=== PATIENT | female | born 1945 ===

== ENCOUNTER 2020-06-07 15:05 | Inpatient (IN) | payer MEDICARE ==
[2020-06-07] MEDS ORDERED: Acetaminophen 650 MG Suppository PR PRN (17:35)
[2020-06-07 17:43] VITALS: BMI 21.2
--- NOTE | 2020-06-07 19:05 | PDOC.HHP ---
Hospitalist HPI - History of Present Illness History of Present Illness: ADMISSION DATE: 06/07/2020 TIME OF ASSESSMENT: 1700 PRIMARY CARE PHYSICIAN: [place] of state CHIEF COMPLAINT: Right flank pain and chills HPI: This is a 74-year-old woman who transferred here from [facility] for continued management of pyelonephritis. She is visiting from [facility] and reports having gradually worsening right flank pain since 5 to 6 days ago. States the discomfort as an aching and rates it a 4 out of 10 in severity. She sought medical attention due to history of kidney infections in the past as well as UTIs. She was given 1 dose of Rocephin and then discharged with Keflex and received 4 doses of that without any significant improvement in her symptoms. She also developed chills which prompted her to seek medical attention today. She reports some difficulty with urination feels like she has been unable to fully empty her bladder. Denies any dysuria or hematuria. She denies any history of kidney stones. Patient had CT abdomen pelvis done which showed no hydronephrosis or urolithiasis. There was bilateral perinephric stranding felt to possibly be chronic in nature. Gallbladder distended measuring 6 cm in transverse dimension. No biliary ductal dilation. She had laboratory studies done which were notable for a white cell count of 15.3, hemoglobin 13.3, hematocrit 37.2, platelets 156. Renal function altered with a BUN of 43, creatinine 3.3, GFR 14. Sodium 133, potassium 4.5, phosphorus 4.6, magnesium 3, albumin 3.1, lactic acid 1.90. LFTs unremarkable. She was started on IV antibiotics with Rocephin and received 1g as well as 2 L of normal saline. Blood cultures were obtained. She was tested for Covid which came back negative. Urine culture was obtained on her initial visit from 06/05/2020 or notable for E. coli greater than 100,000. It was pansensitive except for ampicillin and ampicillin/sulbactam. ROS: Denies having any chest pain palpitations or shortness of breath. Denies having any nausea or vomiting. No headaches or dizziness. Has not had any bowel changes. No lower extremity swelling or edema. No recent cough or hemoptysis. Has not had any recent fevers. All other review systems are negative. PAST MEDICAL HISTORY: Right breast cancer Glaucoma History of CT 3 years ago PAST SURGICAL HISTORY: 1. Status post cardiac ablation x3 2. Coronary artery stent x1 3. Cardiac pacemaker due to persistent supraventricular tachycardia following the third ablation. 4. 5. Left shoulder surgery 6. Left knee surgery SOCIAL HISTORY: Patient is fully independent and lives with her . Reports smoking 2 cigarettes a day and drinks 2 glasses of martini a week. FAMILY HISTORY: Noncontributory ALLERGIES: 1. Beta-blockers caused asthma attack 2. Penicillin causes rash 3. Sulfa causes palpitations CURRENT MEDICATIONS: 1. Furosemide 2. Keflex 3. Magnesium oxide 4. Zioptan - Exam General Appearance: NAD, awake alert Eye: PERRL, anicteric sclera ENT: normocephalic atraumatic, no oropharyngeal lesions Neck: supple, no lymphadenopathy Heart: RRR, no murmur, normal peripheral pulses Respiratory: CTAB, no wheezes, normal chest expansion Gastrointestinal: soft, non-distended, tender to palpation (right CVA tenderness) Extremities: no edema Skin: normal turgor, no lesions, no rashes Neurological: cranial nerve grossly intact, normal sensation to touch, no weakness Musculoskeletal: normal tone, normal strength, no muscle wasting Psychiatric: normal affect, normal behavior, A&O x 3 Hospitalist H&P A/P - Problem (1) Pyelonephritis Code(s): N12 - TUBULO-INTERSTITIAL NEPHRITIS, NOT SPCF ACUTE OR CHRONIC Status: Acute (2) MARIAJOSE (acute kidney injury) Code(s): N17.9 - ACUTE KIDNEY FAILURE, UNSPECIFIED Status: Acute (3) Dehydration Code(s): E86.0 - DEHYDRATION Status: Acute (4) History of coronary artery disease Code(s): Z86.79 - PERSONAL HISTORY OF OTHER DISEASES OF THE CIRCULATORY SYSTEM Status: Chronic (5) History of permanent cardiac pacemaker placement Code(s): Z95.0 - PRESENCE OF CARDIAC PACEMAKER Status: Chronic (6) History of breast cancer Code(s): Z85.3 - PERSONAL HISTORY OF MALIGNANT NEOPLASM OF BREAST Status: Chronic - Plan Plan: Patient admitted for management of pyelonephritis and started on Rocephin prior to transfer. Cultures obtained at outside facility and grew E. Coli. She presented 2 days ago and received one dose of Rocephin, then discharged on Keflex. Returned today due to chills and persistent discomfort. CT done showed no evidence of stones but she did have bilateral perinephric stranding that could be chronic in nature. She has a history of UTIs/Pyelonephritis in the past. She is feeling well at present and has minimal discomfort to the right flank. Pyelonephritis/UTI: Continue IV antibiotics Repeat labs including lactic acid Severe MARIAJOSE: No baseline for comparison but denies history of CKD S/p 2L of NS at outside ED Continue IV fluids, gentle given possible history of CHF (has been on lasix in the past). Monitor renal function Avoid nephrotoxic meds Consult placed to nephrology CAD: Resume home medications once verified. History of pacemaker: Stable States due for exchange next year. Obtain baseline EKG. GI Prophylaxis: Famotidine. DVT Prophylaxis: Mechanical SCDs. CODE STATUS: FULL
[2020-06-07] MEDS: Sodium Chloride 0.9% 1,000 ML IV SCH (19:56)
[2020-06-07] MEDS: Acetaminophen 325 MG TAB PO PRN (20:02)
[2020-06-07] MEDS: Bupropion 150 MG SR TAB PO SCH (20:03)
[2020-06-07] MEDS: Famotidine 20 MG TAB PO SCH (20:03)
[2020-06-07 20:10] LABS: #Eosinphils 0.1 thou/uL (0.0-0.7); #Lymphocytes 0.6 thou/uL (1.20-3.40); #Neutrophils 11.1 thou/uL (1.40-6.50); %Basophils 0.2 % (0.0-1.0); %Eosinophils 0.7 % (0.0-10.0); %Lymphocytes 4.8 % (21.0-51.0); %Neutrophils 86.3 % (42.0-75.0); Hemoglobin 12.2 g/dL (12.0-16.0); Mean Corpuscular Hemoglobin 33.1 pg (27.0-31.0); Mean Platelet Volume 8.6 fL (7.4-10.4); Platelet Count 124 thou/uL (130-400); RBC Distribution Width 13.2 % (11.5-14.5); White Blood Cell (WBC) Count 12.8 thou/uL (4.8-10.8)
[2020-06-07 20:33] LABS: Lactic Acid 1.6 mmol/L (0.5-2.2)
[2020-06-07 20:35] LABS: ALT (SGPT) 17 U/L (8-55); AST (SGOT) 18 U/L (5-34); Albumin 2.8 g/dL (3.4-4.8); Alkaline Phosphatase 134 U/L (40-110); Anion Gap 16 mmol/L (10-20); BUN (Urea Nitrogen) 47 mg/dL (9.8-20.1); Bilirubin, Total 0.4 mg/dL (0.2-1.2); Calc. Creatinine Clearance 16 mL/min (70-130); Calcium 8.2 mg/dL (7.8-10.44); Carbon Dioxide 16 mmol/L (23-31); Chloride 104 mmol/L (98-107); Estimated GFR-MDRD 17; Globulin 2.8 g/dL (2.4-3.5); Glucose 106 mg/dL (83-110); Magnesium 2.5 mg/dL (1.6-2.6); Potassium 4.4 mmol/L (3.5-5.1); Protein, Total 5.6 g/dL (6.0-8.3); Sodium 132 mmol/L (136-145)
--- NOTE | 2020-06-07 20:58 | RAD ---
CHEST TWO VIEWS: History: Shortness of breath FINDINGS: Borderline heart size. Left ICD. Borderline hyperinflation with some increased linear and interstitia l markings bilaterally with some blunting of the costophrenic angles. This has more of a remote or ch ronic appearance possibly representing some interstitial fibrotic disease. No prior imaging is availa ble for comparison, however. IMPRESSION: Increased linear and interstitial markings with borderline hyperinflation. No confluent pneumonia, ov ert edema, or other acute process. Atherosclerosis of the aorta. Left ICD. POS: RRE
[2020-06-07] MEDS ORDERED: diphenhydrAMINE 25 MG CAP PO PRN (21:32)
[2020-06-07] MEDS: Latanoprost 0.005% Ophth Soln 2.5 ml Bottle EA EYE SCH (23:23)
[2020-06-08 06:39] LABS: Hemoglobin 11.6 g/dL (12.0-16.0); Mean Corpuscular Hemoglobin 33.2 pg (27.0-31.0); Mean Platelet Volume 8.4 fL (7.4-10.4); Platelet Count 152 thou/uL (130-400); RBC Distribution Width 13.1 % (11.5-14.5); Red Blood Cell (RBC) Count 3.48 mill/uL (4.20-5.40); White Blood Cell (WBC) Count 12.7 thou/uL (4.8-10.8)
[2020-06-08 06:57] LABS: Anion Gap 14 mmol/L (10-20); BUN (Urea Nitrogen) 41 mg/dL (9.8-20.1); Calc. Creatinine Clearance 18 mL/min (70-130); Carbon Dioxide 19 mmol/L (23-31); Chloride 107 mmol/L (98-107); Estimated GFR-MDRD 19; Glucose 100 mg/dL (83-110); Potassium 4.7 mmol/L (3.5-5.1); Sodium 135 mmol/L (136-145)
[2020-06-08 07:31] LABS: Band 10 % (5-11); Lymphocytes 8 % (21-51); MDiff Complete? YES; Macrocytosis SLIGHT = 6-15 cells (100X) (0-5/hpf); Monocytes 5 % (0-10); Neutrophil 76 % (42-75); Platelet Morphology Comment Appears Adequate; Toxic Granulation SLIGHT
--- NOTE | 2020-06-08 07:42 | ULT ---
Renal sonogram HISTORY: Renal failure. Flank pain. FINDINGS: The right kidney is 10.6 cm in length and the left is 11.6 cm. Each has a normal appearance. No mass, stone, or hydronephrosis. Urinary bladder has normal appearance with bilateral ureteral jets documented. IMPRESSION : Normal exam.
[2020-06-08] MEDS: Bupropion 150 MG SR TAB PO SCH ×2 (08:18→19:46)
[2020-06-08] MEDS: Famotidine 20 MG TAB PO SCH ×2 (08:19→19:46)
[2020-06-08] MEDS ORDERED: FLU VACC QS2020-21(65YR UP)/PF 240 MCG/0.7 ML SYRINGE IM ONE (09:00)
[2020-06-08] MEDS ORDERED: Sodium Chloride 0.9% 10 ML ONE (10:23)
[2020-06-08] MEDS: Sodium Chloride 0.9% 1,000 ML IV SCH (10:50)
[2020-06-08] MEDS: Sodium Bicarbonate 150 MEQ in Dextrose 5% in Water 1,000 ML IV SCH (11:27)
--- NOTE | 2020-06-08 12:26 | PDOC.HOSPP ---
- Subjective Encounter Date: 06/08/20 Encounter Time: 12:23 Subjective: much better, no fever, etc - Objective Vital Signs & Weight: Vital Signs (12 hours) Temp Pulse Resp BP Pulse Ox 06/08/20 12:10 98.1 F 62 18 119/62 97 06/08/20 08:18 98.2 F 68 18 128/71 95 06/08/20 04:20 95 Weight Weight 120 lb Result Diagrams: 06/08/20 06:14 06/08/20 06:14 Hospitalist ROS - Medication Medications: Active Medications Generic Name Dose Route Start Last Admin Trade Name Freq PRN Reason Stop Dose Admin Acetaminophen 650 mg 06/07/20 17:35 06/07/20 20:02 Acetaminophen 325 Mg Tab PO 650 mg Q4H PRN Administration Headache/Fever/Mild Pain (1-3) Bupropion HCl 150 mg 06/07/20 21:00 06/08/20 08:18 Bupropion 150 Mg Sr Tab PO 150 mg BID ALICE Administration Diphenhydramine HCl 25 mg 06/07/20 21:32 06/07/20 22:17 Diphenhydramine 25 Mg Cap PO 25 mg HSPRN PRN Administration Itching & Insomnia Famotidine 20 mg 06/07/20 21:00 06/08/20 08:19 Famotidine 20 Mg Tab PO 20 mg BID ALICE Administration Sodium Bicarbonate 150 meq/ 1,150 mls @ 100 mls/hr 06/08/20 10:00 06/08/20 11:27 Dextrose/Water IV 1,150 mls .[id number] ALICE Administration Latanoprost 0 drop 06/07/20 21:00 06/07/20 23:23 Latanoprost 0.005% Ophth Soln 2.5 Ml Bottle EA EYE Not Given HS ALICE - Exam General Appearance: awake alert Neck: no JVD Heart: RRR, no murmur Respiratory: CTAB Gastrointestinal: soft, normal bowel sounds Extremities: no edema Hosp A/P (1) MARIAJOSE (acute kidney injury) Code(s): N17.9 - ACUTE KIDNEY FAILURE, UNSPECIFIED Status: Acute (2) Pyelonephritis Code(s): N12 - TUBULO-INTERSTITIAL NEPHRITIS, NOT SPCF ACUTE OR CHRONIC Status: Acute (3) History of breast cancer Code(s): Z85.3 - PERSONAL HISTORY OF MALIGNANT NEOPLASM OF BREAST Status: Chronic (4) History of coronary artery disease Code(s): Z86.79 - PERSONAL HISTORY OF OTHER DISEASES OF THE CIRCULATORY SYSTEM Status: Chronic (5) History of permanent cardiac pacemaker placement Code(s): Z95.0 - PRESENCE OF CARDIAC PACEMAKER Status: Chronic - Plan on further conversation, she was told she had impaired kidney fcn in past cont iv anyibx discuss with renal monitor creatinine
[2020-06-08] MEDS ORDERED: cefTRIAXone\\ROCEPHIN 2 GM in Sodium Chloride 0.9% 100 ML IVPB SCH (13:00)
[2020-06-08] MEDS ORDERED: cloNIDine 0.1 MG TAB PO PRN (19:38)
[2020-06-08] MEDS: Latanoprost 0.005% Ophth Soln 2.5 ml Bottle EA EYE SCH (19:46)
--- NOTE | 2020-06-08 22:34 | CON ---
DATE OF CONSULTATION: REQUESTING PHYSICIAN: SATISH Torres with Hospitalist [facility]. REASON FOR CONSULTATION: Acute kidney injury in the context of urinary tract infection. IMPRESSION: 1. Acute kidney injury versus acute on chronic kidney disease likely cytokine-mediated . 2. Urinary tract infection/possible pyelonephritis. 3. Metabolic acidosis. PLAN: 1. The patient is already on appropriate antibiotics treatment. 2. Renally dose all medications and avoid potentially nephrotoxic agents. 3. We will change the current IV fluid to bicarb based infusion to have normalized metabolic acidosis in this patient. HISTORY OF PRESENT ILLNESS: History is that of a 75-year-old female patient, who presented here with right flank pain and chills, got diagnosed with pyelonephritis and noted with elevated creatinine, possibly acute on chronic versus acute kidney injury. As a result of these findings, decision has been taken to involve Renal in the management of this case. Currently, the patient's urine is growing out E. coli sensitive to the current antibiotics. PAST MEDICAL HISTORY: Significant for breast cancer, glaucoma, coronary artery disease status post cardiac pacemaker . SOCIAL HISTORY: No alcohol, but smokes about two cigarettes per day. FAMILY HISTORY: Nonsignificantly related to present illness. ALLERGIES: TO BETA BLOCKERS, PENICILLIN, AND SULFA. MEDICATIONS: As documented on [employer]. REVIEW OF SYSTEMS: As documented in the body of the history. PHYSICAL EXAMINATION: GENERAL: The patient was found not to be in any obvious distress. Noted with the following vital signs. VITAL SIGNS: Afebrile, temperature 97.8, pulse 52, respiratory rate of 18, and O2 saturation of 97% with a blood pressure of 144/68. HEENT: Unremarkable. CARDIOVASCULAR SYSTEM: First and second sounds were heard. RESPIRATORY SYSTEM: Clear to auscultation. DIGESTIVE SYSTEM: Revealed a benign abdomen with positive bowel sounds. EXTREMITIES: No peripheral edema. SKIN: No new gross rash. LYMPHATICS: No peripheral lymphadenopathy. SUMMARY: A 75-year-old female patient, who presented here with just a urinary tract infection as well as diminished renal function. Thank you for this consultation. We will follow with you. Job ID: [id number]
[2020-06-09] MEDS: Sodium Bicarbonate 150 MEQ in Dextrose 5% in Water 1,000 ML IV SCH (02:04)
[2020-06-09] MEDS: Bupropion 150 MG SR TAB PO SCH (10:02)
[2020-06-09] MEDS: Famotidine 20 MG TAB PO SCH (10:02)
[2020-06-09] MEDS: Acetaminophen 325 MG TAB PO PRN (10:11)
[2020-06-09 11:55] VITALS: BP 173/75; TEMP 98.1
--- NOTE | 2020-06-09 12:26 | DIS ---
DATE OF ADMISSION: 06/07/2020 DATE OF DISCHARGE: 06/09/2020 DISPOSITION: Discharged home. FINAL DIAGNOSES: Urinary tract infection, acute versus chronic kidney failure, presence of cardiac pacemaker, history of breast cancer, and coronary artery disease. DISCHARGE MEDICINES: 1. Lasix 20 mg a day. 2. Wellbutrin SR 150 p.o. b.i.d. 3. Potassium chloride 10 mEq a day. 4. Omnicef 300 mg p.o. q.12 hours x8 days. ALLERGIES: TO BETA-BLOCKERS, PENICILLINS, AND SULFA. CODE STATUS: Full. PENDING AT TIME OF DISCHARGE: Nothing. CONSULTATIONS: Dee Padilla MD, Nephrology. HOSPITAL COURSE: The patient was admitted to the hospital with flank pain and chills. She was given Rocephin and discharged from there. Her culture there shows E. coli, sensitive to cephalosporins and resistant to ampicillin. She was found incidentally to have elevated creatinine of 2.72, which was fluids came down to 2.46. She had an acidosis of 16 on CO2 on lytes, which improved to 19. In discussion with her, she states she has never been told she has chronic kidney disease, but she has been told that her kidney test is elevated. She is currently afebrile since admission. Feels well. Her IV has infiltrated. She is reluctant to have more intravenous medicines due to inability to have an IV in her right arm due to previous surgery and a swollen left arm, which is not redder, just fluid. She feels well. We discussed the fact she has currently had a total of four days of IV cephalosporin including the outlying ER. I considered quite safe to discharge her home on an oral cephalosporin. We have discussed her abnormal renal function. She is from [place] visiting here. She will be flying back or driving back one of the others Monday. Her has a military technology specialist, I have encouraged her to see her PCP and military technology specialist as soon as she gets back to [place]. To return to our emergency room, if she has more problems. Job ID: [id number]
== END 2020-06-09 12:25 | disposition home or self-care (01) | DRG 683 ==
LOC: OBSVTOIN 16:00 → 3SE 16:00 → INTOOBSV 16:00
PROVIDERS: ADMIT Internal Medicine; ATTEND Internal Medicine
DX: N17.9 Acute kidney failure, unspecified (principal); Z16.11 Resistance to penicillins; E87.2 Acidosis; N12 Tubulo-interstitial nephritis, not specified as acute or chronic; B96.20 Unspecified Escherichia coli [E. coli] as the cause of diseases classified elsewhere; Z23 Encounter for immunization; Z20.828 Contact with and (suspected) exposure to other viral communicable diseases; C50.911 Malignant neoplasm of unspecified site of right female breast; H40.9 Unspecified glaucoma; N18.9 Chronic kidney disease, unspecified; F17.210 Nicotine dependence, cigarettes, uncomplicated; I25.2 Old myocardial infarction; Z95.5 Presence of coronary angioplasty implant and graft; Z95.0 Presence of cardiac pacemaker; Z79.899 Other long term (current) drug therapy; Z88.2 Allergy status to sulfonamides; Z88.0 Allergy status to penicillin
CPT/HCPCS: 36415; 71046; 76770; 80048; 80053; 83605; 83735; 85025; G0378; J0696; J3490; J7070; Q0163